=== PATIENT | male | born 1990 | race Hispanic/Latino ===

== ENCOUNTER 2018-06-12 22:18 | Emergency (ER) | payer BC, SELFPAY ==
[2018-06-12] MEDS ORDERED: Adacel (T-DAP) 0.5 ML SYRINGE ONE (23:50)
== END 2018-06-13 00:10 | disposition home or self-care (01) ==
LOC: ERS 22:18
DX: K06.8 Other specified disorders of gingiva and edentulous alveolar ridge (principal); F17.210 Nicotine dependence, cigarettes, uncomplicated
CPT/HCPCS: 90471; 90715

== ENCOUNTER 2018-06-13 01:44 | Emergency (ER) | payer SELFPAY | END 2018-06-13 03:10 | disposition home or self-care (01) | LOC: ERS 01:44 | DX: K05.10 Chronic gingivitis, plaque induced (principal); F17.210 Nicotine dependence, cigarettes, uncomplicated | CPT/HCPCS: 99283 ==